=== PATIENT | female | born 2000 | race African-American/Black ===

== ENCOUNTER 2023-07-23 21:26 | Emergency (ER) | payer OTHER ==
[~2023-07-23] VITALS: Ht 165.1 cm; Wt 69.0 kg
[2023-07-23 21:44] VITALS: O2SAT 99
[2023-07-23 23:24] LABS: CLARITY URINE CLEAR (CLEAR); COLOR URINE YELLOW (YELLOW); GLUCOSE URINE NEGATIVE (NEGATIVE); KETONES URINE NEGATIVE (NEGATIVE); LEUKOCYTE ESTERASE URINE NEGATIVE (NEGATIVE); NITRITE URINE NEGATIVE (NEGATIVE); OCCULT BLOOD URINE NEGATIVE (NEGATIVE); PH URINE 7.5 (4.5-8.0); PROTEIN URINE NEGATIVE (NEGATIVE); SPECIFIC GRAVITY URINE 1.018 (1.005-1.030)
[2023-07-24] MEDS ORDERED: IBUP-2029 MT (00:28)
[2023-07-24 00:40] VITALS: BP 129/78; PULSE 80; RESP 18; TEMP 98.6
== END 2023-07-24 00:41 | disposition home or self-care (01) ==
LOC: ER 21:26
DX: J06.9 Acute upper respiratory infection, unspecified (principal); I10 Essential (primary) hypertension; Z20.822 Contact with and (suspected) exposure to COVID-19
CPT/HCPCS: 99284; 71045; 87426; 81003; 81025; 87804 ×2; C9803